=== PATIENT | male | born 1970 | race Asian ===

== ENCOUNTER 2017-06-15 18:51 | Emergency (ER) | payer OTHER ==
[~2017-06-15] VITALS: Ht 180.3 cm; Wt 98.2 kg
[~2017-06-15 18:51] MED LIST: ASPIR 8181 MG PO; ATORVASTATIN CA20 M1 PO; BISOPROLOL FUMAR5 MG PO; COZ50 PO; DIO80 PO; DIOVAN80 MG PO; ECO81 PO; EFFIENT10 M1 PO; METOPROLOL TART25 M1 PO; MOR2I IV; ZES10 PO; ZOC10 PO; ZOFI IV
[2017-06-15 19:04] VITALS: Ht 180.3 cm; Wt 98.2 kg
[2017-06-15 21:33] LABS: BASOPHIL % 0.3 % (0-2); PLATELET COUNT 211 x10^3mcL (130-400)
[2017-06-15 21:38] LABS: CALCIUM 8.9 mg/dL (8.5-10.1); CARBON DIOXIDE 27.7 mmol/L (21-32); CHLORIDE SERUM 106 mmol/L (98-107); CREATININE SERUM 1.3 mg/dL (0.7-1.3); GFR1 > 60 mL/min; GLUCOSE SERUM 117 mg/dL (74-106); POTASSIUM SERUM 3.4 mmol/L (3.5-5.1); SODIUM SERUM 142 mmol/L (136-145)
[2017-06-15 21:49] LABS: RED CELL DISTRIBUTION WIDTH 15.8 % (11.5-14.5)
[2017-06-15 23:00] VITALS: BP 105/61
== END 2017-06-15 23:00 | disposition home or self-care (01) ==
LOC: ED 18:51
PROVIDERS: Emergency Medicine
DX: R11.10 Vomiting, unspecified (principal); R19.7 Diarrhea, unspecified; R53.1 Weakness; R51 Headache; R68.83 Chills (without fever); E78.00 Pure hypercholesterolemia, unspecified; I10 Essential (primary) hypertension; Z95.5 Presence of coronary angioplasty implant and graft; T46.3X5A Adverse effect of coronary vasodilators, initial encounter; Y92.89 Other specified places as the place of occurrence of the external cause
CPT/HCPCS: J7030; Q0092; Q0162